=== PATIENT | female | born 1940 | race Caucasian/White ===

== ENCOUNTER 2021-04-17 21:16 | Inpatient (IN) | payer MEDICARE, OTHER ==
[~2021-04-17] VITALS: Ht 157.5 cm; Wt 68.3 kg
[2021-04-17] MEDS ORDERED: polyethylene glycoL POWDER 17 GM (MIRALAX) PACK PO PRN (21:30)
[2021-04-17] MEDS ORDERED: ANTACID SUSP 30 ML UDC (MYLANTA) PO PRN (21:30)
[2021-04-17] MEDS ORDERED: ONDANSETRON 4 MG/2 ML (SDV) Z0FRAN IV PRN (21:30)
[2021-04-17] MEDS ORDERED: MELATONIN 3 MG TABLET PO PRN (21:30)
--- OUTSIDE RECORDS SUMMARY | 2021-04-17 23:45 | XMS REPORT | Clinical Summary ---
Author Author [facility] Organization [facility] Address Unknown Phone Unavailable Care Team Providers Care Feed Research Aide Name Role Phone Edvin May DO PCP Allergies Comments Active Allergy Reactions Severity Noted Date Diphenhydramine Hcl Hives High 02/26/2011 Naproxen Hives High 02/26/2011 Reflux Risedronate Other (See 02/26/2011 Comments) Tetracyclines 09/27/2020 Medications End Date Status Medication Sig Dispensed Refills Start Date Active omega 3 fish oil (SEA Take 1 0 OMEGA) DHA 200 mg-EPA 300 capsule by mg (1,000 mg) capsule mouth daily. Active therapeutic multivitamin Take 1 tablet 0 (THERAGRAN) tablet by mouth daily. Active cholecalciferol, vitamin Take 1,000 0 D3, 1,000 units(25 mcg) Units by tablet mouth daily. Active vitamin E 100 UNIT Take 100 0 capsule Units by mouth daily. Active cetirizine HCl (ZYRTEC Take 1 tablet 0 ORAL) by mouth daily as needed. Active acetaminophen (TYLENOL) Take 650 mg 0 650 MG CR tablet by mouth nightly as needed. Active ipratropium-albuteroL Inhale 3 mL 0 (DUO-NEB) 0.5-3 mg/3 mL every 6 (six) nebulizer hours as needed. Active apixaban (ELIQUIS) 5 mg Take 1 tablet 60 tablet 1 tablet (5 mg total) 1 by mouth 2 (two) times a day. Active empagliflozin (JARDIANCE) Take 1 tablet 30 tablet 1 10 mg tablet (10 mg total) 1 by mouth daily. Hawkins check only Active aspirin 81 MG EC tablet Take 1 tablet 30 tablet 0 (81 mg total) 1 by mouth daily. Active fluticasone propionate Use 1 spray 1 Bottle 0 (FLONASE) 50 in each 1 mcg/actuation nasal spray nostril daily. Active varenicline (CHANTIX) 0.5 Take 1 tablet 30 tablet 0 MG tablet (0.5 mg 1 total) by mouth daily. Active aliskiren (TEKTURNA) 150 Take 1 tablet 30 tablet 0 MG tablet (150 mg 1 total) by mouth daily. Active citalopram (CELEXA) 20 mg Take 1 tablet 30 tablet 0 tablet (20 mg total) 1 by mouth daily. Active cloNIDine HCL (CATAPRES) Take 1 tablet 60 tablet 0 0.2 mg tablet (0.2 mg 1 total) by mouth 2 (two) times a day. Active metoprolol succinate Take 1 tablet 30 tablet 0 (TOPROL-XL) 25 MG 24 hr (25 mg total) 1 tablet by mouth nightly. Active atorvastatin (LIPITOR) 40 Take 1 tablet 90 tablet 0 MG tablet (40 mg total) 1 by mouth nightly. Active fluticasone Inhale 1 puff 60 each 0 propion-salmeteroL 2 (two) times 1 (ADVAIR) 250-50 mcg/dose a day. DISKUS Active lisinopriL Take 1 tablet 90 tablet 0 (PRINIVIL,ZESTRIL) 20 MG (20 mg total) 1 tablet by mouth daily. Active nicotine (NICODERM CQ) 7 Place 1 patch 28 patch 0 mg/24 hr on the skin 1 daily. Active varenicline (CHANTIX) 0.5 Take 1 tablet 8 tablet 0 MG tablet (0.5 mg 1 total) by mouth 2 (two) times a day. Active varenicline (CHANTIX) 1 Take 1 tablet 60 tablet 0 mg tablet (1 mg total) 1 by mouth 2 (two) times a day. Active ALPRAZolam (XANAX) 0.25 Take 1 tablet 5 tablet 0 MG tablet (0.25 mg 1 total) by mouth 3 (three) times a day as needed for anxiety. 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 Cards initially consulted and now ciera d off -Appears euvolemic. -Will hold further IV diuresis; hypoNa and hypoCl -Would eventually discharge with torsem victoriano 20 mg po daily. -If Na improves, can start aldactone at discharge. -Had episode (brief) of chest pain on w aking AM 10/03, EKG/CXR/Troponin were all stable/unremarkable, sx's resolved. Will continue to monitor, if recurs will re-consult cardiology. Pt suspects it was due to heartburn as "that's what it normally feels like." Was relieved by NTG, but given brevity and lack of inciting factor, re flux is a viable explanation Sialadenitis 09/29/2020 Last Assessment & Plan: Formatting of this note might be differ ent from the original. CT scan showing diffuse subcutaneous ed brock CT neck showing sialoadenitis without definite sialolith. Concern fo r cellulitis in the submandibular region ENT was consulted and recommended treat ment with antibiotics, currently on Augmentin P.o. hydration, warm compress, plan abhishek lang, sialagogues Hyponatremia 09/28/2020 Last Assessment & Plan: Formatting of this note might be differ ent from the original. 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 Home requirement 2-3L Titrate as able Hyperlipemia Last Assessment & Plan: Formatting of this note might be differ ent from the original. ACID PUMPER statin, now changed to high intensi ty statin with lipitor 40mg PVD (peripheral vascular disease) Last Assessment & Plan: Formatting of this note might be differ ent from the original. Significant vascular disease, complicat es care COPD (chronic obstructive pulmonary dis ease) Last Assessment & Plan: Formatting of this note might be differ ent from the original. PFTs not on file Significant smoking history On O2 at home Possibly started breo about a week ago and then ran out; restarted Pulm consulted - PO prednisone 40mg x5d - CTX x 3 days, now on augmentin for he r possible oral infection - Hank IZAGUIRRED - aerobika Tobacco abuse Last Assessment & Plan: Formatting of this note might be differ ent from the original. Significant smoking history Patient counseled on cessation, willing to try Chantix, but wants to initiate in hospital Rx for Chantix ordered 10/02, pt v/u the potential SE's including vivid dreams, mood changes, nausea, SHAY, etc Hypertension Last Assessment & Plan: Formatting of this note might be differ ent from the original. Hypertensive pressures ACID PUMPER tekturna, clonidine, diltiazem, Lis inopril/HCTZ, metoprolol Diltiazem was d/c due to NICM, HCTZ dc due hypoNa Consider dose increase on lisinopril, b ut BP stable currently Paroxysmal atrial fibrillation Last Assessment & Plan: Formatting of this note might be differ ent from the original. Patient reports history of at least par oxysmal afib Rates in RVR territory overnight and gi jason 5mg IV metoprolol On ACID PUMPER diltiazem and metoprolol at home ; dc cardizem due to NICM Now in sinus rhythm Started on eliquis Resolved Problems Problem Noted Date Resolved Date Severe sepsis 09/28/2020 10/04/2020 Leukocytosis 09/28/2020 10/04/2020 Last Assessment & Plan: Formatting of this note might be differ ent from the original. Likely from steroids, completed 3 days of CTX, cont Augmentin CT showed consolidation of LLL, multifa ctorial, recommend f/u CT in 3 months Continue to monitor Chest pain 09/28/2020 09/30/2020 Last Assessment & Plan: Formatting of this note might be differ ent from the original. Repeat EKG non-ischemic/unchanged Troponin initially 0.04-->0.03 Recent stress test non-ischemic Did resolve initially with a GI cocktai l, now recurrent with repeat troponin normal Respiratory failure with hypoxia 09/27/202010/01 Last Assessment & Plan: Formatting of this note might be differ ent from the original. Likely multifactorial from COPD and chadwick b with RVR, heart failure - see problems above Social History Date Tobacco Use Types Packs/Day Years Used Current Every Day Smoker Cigarettes 2 Smokeless Tobacco: Never Used Sex Assigned at Date Recorded Not on file Last Filed Vital Signs Reading Time Taken Comments Vital Sign 132/47 10/04/2020 3:11 PM CDT Blood Pressure 77 10/04/2020 3:11 PM CDT Pulse 36.6 C (97.9 F) 10/04/2020 3:11 PM CDT Temperature 18 10/04/2020 3:11 PM CDT Respiratory Rate 93% 10/04/2020 3:11 PM CDT Oxygen Saturation - - Inhaled Oxygen Concentration 66 kg (145 lb 9.6 oz) 10/04/2020 3:17 AM CDT Weight 157.5 cm (5' 2") 09/27/2020 3:00 AM CDT Height 26.63 09/27/2020 3:00 AM CDT Body Mass Index Plan of Treatment Health Maintenance Due Date Last Done Comments Medicare Annual Wellness 1941 Spirometry # 1940 Td/Tdap# 1941 Tobacco Cessation 1941 Counseling # Zoster Vaccine# (1 of 2) 09/18/1991 Advance Directive 2006 Conversation Depression Screening 2006 PHQ-9 # Osteoporosis Screening 2006 Influenza Vaccine (#1) 2021 08/27/2019, 07/05/2012 Fall Risk Assessment # 10/04/2021 10/04/2020 Pneumococcal Vaccine: 65+ Completed 08/27/2019, Years 05/29/2018 COVID-19 Vaccine Completed 09/20/2020 Advance Directive has Completed 10/07/2020, been filed 10/07/2020, 10/07/2020 Patient Needs Advance Completed Directive Results Not on filefrom Last 3 Months Insurance Type Payer Benefit Subscriber ID Effective Phone Address Plan / Dates Group MEDICARE REPLACEMENT PLAN [facility] [id number] 2020-P [phone] [address] [place] [address] [place] [address] Advance Directives For more information, please contact: [phone] 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
--- NOTE | 2021-04-18 00:02 | Tele-ICU Consult ---
History of Present Illness History of Present Illness Date Seen by Provider: Apr 17, 2021 Time Seen by Provider: 23:57 Date of Admission 80 y old lady with hx of COPD (on home o2 2l), CHF (LVEF 30%) presented with sob as of today; no fever chills; cough not changed. Denies CP; vaccine COVID +. Allergies and Home Medications Allergies Coded Allergies: No Allergy Information Available (Unverified , 04/17/21) Past Medical/Social/Family Hx Patient Social History Tobacco Use?: Yes Review of Systems Constitutional: see HPI Sepsis Event Evaluation Height, Weight, BMI Height: '" Weight: lbs. oz. kg; BMI Method: Exam Exam Patient acknowledged, consented, and participated in this virtual visit which was conducted using real time audio/video Height & Weight Height: '" Weight: lbs. oz. kg; BMI Method: General Appearance: No Apparent Distress, Chronically ill Assessment/Plan Assessment/Plan Acute on chronic hypoxemic resp failure copd/ chf exacerbation -cxray/ abg -steroids/ duo nebs -may need nocturnal bipap dvt prophylaxis ro PR HTN add hydralazine JANAK HINES MD Apr 18, 2021 00:02
[2021-04-18] MEDS ORDERED: hydrALAZINE (APESOLINE) 20 MG/ML VIAL IV ONE (00:15)
[2021-04-18] MEDS ORDERED: ENOXAPARIN 40 MG/0.4 ML (LOVENOX) SYR SC SCH ×2 (00:15→09:00)
[2021-04-18] MEDS: methylPREDNISolone 125 MG (Solu-MEDROL) VIAL IV SCH ×3 (00:30→13:11)
[2021-04-18] MEDS: NS IV 1000 ML 1,000 ML IV SCH ×2 (00:30→15:11)
[2021-04-18] MEDS: RT-ALBUTEROL/IPRATROPIUM 3 ML (DUONEB) VIAL IH SCH ×7 (00:38→22:21)
[2021-04-18 00:58] LABS: ABG BASE EXCESS 0.7 MMOL/L (-2.5-2.5); ABG OXYGEN SATURATION 97 % (94-100); ABG PCO2 35 MMHG (35-45); ABG PH 7.45 (7.37-7.43); ABG PO2 78 MMHG (79-93); ABG TCO2 25.5 MMOL/L (21.0-31.0); INSPIRED O2 6L; PATIENT TEMP 36; VENTILATOR NO
[2021-04-18] MEDS ORDERED: ALPRAZolam 1 MG (XANAX) TAB PO ONE (01:15)
[2021-04-18] MEDS: ALPRAZolam 0.5 MG (XANAX) TAB PO PRN ×2 (01:25→16:09)
[2021-04-18] MEDS: ACETAMINOPHEN 325 MG TABLET PO PRN ×3 (01:26→20:39)
[2021-04-18] MEDS: NICOTINE 7 MG (NICODERM) PATCH TD SCH ×2 (01:37→08:05)
[2021-04-18] MEDS ORDERED: RT-ALBUTEROL/IPRATROPIUM 3 ML (DUONEB) VIAL INH SCH (02:00)
[2021-04-18 02:12] LABS: AMPHETAMINE SCREEN, URINE NEGATIVE (NEGATIVE); BARBITURATE SCREEN URINE NEGATIVE (NEGATIVE); BENZODIAZEPINES SCREEN URINE POSITIVE (NEGATIVE); CANNABINOID SCREEN, URINE NEGATIVE (NEGATIVE); COCAINE SCREEN URINE NEGATIVE (NEGATIVE); METHADONE STAT NEGATIVE (NEGATIVE); METHAMPHETAMINE SCREEN URINE S NEGATIVE (NEGATIVE); OPIATE SCREEN URINE NEGATIVE (NEGATIVE); OXYCODONE STAT NEGATIVE (NEGATIVE); PROPOXYPHENE STAT NEGATIVE (NEGATIVE); TRICYCLIC ANTIDEPRESSANTS SCRE NEGATIVE (NEGATIVE)
[2021-04-18 06:05] LABS: HEMATOCRIT 42 % (35-52); HEMOGLOBIN 14.7 g/dL (11.5-16.0); MEAN CORPUSCULAR HEMOGLOBIN 32 pg (25-34); MEAN CORPUSCULAR HGB CONC 35 g/dL (32-36); MEAN CORPUSCULAR VOLUME 91 fL (80-99); MEAN PLATELET VOLUME 8.4 fL (9.0-12.2); PLATELET COUNT 212 10^3/uL (130-400); WHITE BLOOD COUNT 13.2 10^3/uL (4.3-11.0)
[2021-04-18 06:21] LABS: INR 1.1 (0.8-1.4); PROTHROMBIN TIME PATIENT 14.9 SEC (12.2-14.7)
[2021-04-18 06:27] LABS: POTASSIUM 4.8 MMOL/L (3.6-5.0)
[2021-04-18 06:29] LABS: CALCIUM 9.7 MG/DL (8.5-10.1)
[2021-04-18] MEDS: POTASSIUM CL 10MEQ/50ML IVPB 50 ML IV SCH (06:30)
[2021-04-18] MEDS: KCL 20 MEQ TAB (K-DUR) PO SCH (06:31)
[2021-04-18 06:33] LABS: CREATININE SERUM 0.73 MG/DL (0.60-1.30); PHOSPHORUS 2.7 MG/DL (2.3-4.7)
[2021-04-18 06:35] LABS: MAGNESIUM 1.5 MG/DL (1.6-2.4)
[2021-04-18] MEDS: inSUlin ASPART (NovoLOG) 1 UNIT/0.01 ML (CHARGE PER UNIT) SC SCH ×4 (06:48→20:40)
[2021-04-18] MEDS: MAGNESIUM 1 GM/100 ML IVPB 100 ML IV SCH ×3 (06:48→10:43)
--- NOTE | 2021-04-18 07:14 | Diagnostic Imaging Report ---
EXAMINATION: Chest 1 view HISTORY: COPD COMPARISON: None available. FINDINGS: The lungs are clear without edema or pneumonia. No pleural effusion or pneumothorax. Heart size is normal. Lucency along the aortic knob and descending aorta may represent pneumomediastinum. IMPRESSION: 1. There is a lucency along the aortic knob and descending aorta which may represent pneumomediastinum. Dictated by: Dictated on workstation # [id number]
[2021-04-18] MEDS: NICOTINE PATCH REMOVAL TP SCH (08:05)
--- NOTE | 2021-04-18 08:26 | Tele-ICU Progress Note ---
Subjective Date Seen by a Provider: Apr 18, 2021 Time Seen by a Provider: 13:26 Subjective/Events-last exam 80 yo F admitted with exerbation of CHF, COPD, on 6 lpm NC, FiO2 30%, SpO2 95%, CXR shows hyperinflation, ABG 7.45/35/78, On Medrol/albuterol Has chronically low Na 118, now 120, urine lytes and osmoles not back yet Sepsis Event Evaluation Height, Weight, BMI Height: '" Weight: lbs. oz. kg; 25.55 BMI Method: Focused Exam Lactate Level 04/18/21 00:50: Lactic Acid Level 0.85 Exam Exam Patient acknowledged, consented, and participated in this virtual visit which was conducted using real time audio/video Vital Signs Date Time Temp Pulse Resp B/P (MAP) Pulse Ox O2 Delivery O2 Flow Rate FiO2 04/18/21 07:54 36.0 04/18/21 07:28 95 Nasal Cannula 4.00 04/18/21 07:00 70 04/18/21 06:00 70 33 139/64 94 Nasal Cannula 6.00 04/18/21 05:00 73 21 124/109 94 Nasal Cannula 6.00 04/18/21 04:00 36.1 Nasal Cannula 6.00 04/18/21 04:00 69 27 112/53 92 Nasal Cannula 6.00 04/18/21 04:00 Nasal Cannula 6.00 04/18/21 03:11 91 Nasal Cannula 6.00 04/18/21 03:00 68 24 107/54 93 Nasal Cannula 6.00 04/18/21 02:00 74 31 171/78 94 Nasal Cannula 6.00 04/18/21 01:30 83 181/93 94 Nasal Cannula 6.00 04/18/21 01:19 82 04/18/21 01:15 80 190/77 95 Nasal Cannula 6.00 04/18/21 01:13 85 191/82 93 Nasal Cannula 6.00 04/18/21 00:45 76 164/73 95 Nasal Cannula 6.00 04/18/21 00:30 67 29 189/172 96 Nasal Cannula 6.00 04/18/21 00:15 64 192/94 95 Nasal Cannula 6.00 04/18/21 00:00 70 198/98 97 Nasal Cannula 6.00 04/17/21 23:55 Nasal Cannula 6.00 04/17/21 23:50 36.0 Nasal Cannula 6.00 04/17/21 23:43 74 04/17/21 23:42 76 35 128/113 97 Nasal Cannula 6.00 I & O 04/18/21 06:59 Intake Total 500 ml Output Total 650 ml Balance -150 ml Height & Weight Height: '" Weight: lbs. oz. kg; 25.55 BMI Method: General Appearance: No Apparent Distress, Chronically ill, Mild Distress (some distress when eats) Respiratory: Decreased Breath Sounds (decreased BS in both lower lobes) Cardiovascular: Regular Rate, Rhythm, Tachycardia Gastrointestinal: normal bowel sounds, non tender, soft Extremity: Non Tender, No Pedal Edema Neurologic/Psychiatric: Alert, Oriented x3 Results Lab Laboratory Tests 04/18/21 05:30 Assessment/Plan Assessment/Plan COPD, appears compensated hyponatremia, Na 118, will draw cortisol as on Medrol, await urine lytes and osmoles can go to medical-surg floor await free cortisol level Hb 14.7 to ri suggests reactive polycythemia from hypoxemia, Before discharge would do 6 min walk. Critical Care: Critically Ill Patient CHAD MCCLAIN MD Apr 18, 2021 08:26
[2021-04-18 09:08] LABS: CALCIUM 9.4 MG/DL (8.5-10.1); CREATININE SERUM 0.69 MG/DL (0.60-1.30); POTASSIUM 4.4 MMOL/L (3.6-5.0)
[2021-04-18] MEDS ORDERED: APIX5TAB PO (12:09)
[2021-04-18] MEDS ORDERED: CETI10TA17 PO (12:09)
[2021-04-18] MEDS ORDERED: [UNRECOGNIZED DRUG - CODE] PO (12:09)
[2021-04-18] MEDS ORDERED: FURO40TA4 PO (12:09)
[2021-04-18] MEDS ORDERED: CITA20TA9 PO (12:09)
[2021-04-18] MEDS ORDERED: CHOL-34 PO (12:09)
[2021-04-18] MEDS ORDERED: SPIR25TA5 PO (12:09)
[2021-04-18] MEDS ORDERED: DIGO125T3 PO (12:09)
[2021-04-18] MEDS ORDERED: LISI40TA9 PO (12:09)
[2021-04-18] MEDS ORDERED: ACET-2650 PO (12:09)
[2021-04-18] MEDS ORDERED: VITA100T8 PO (12:09)
[2021-04-18] MEDS ORDERED: METO50TA7 PO (12:09)
[2021-04-18] MEDS ORDERED: ATOR40TA70 PO (12:09)
[2021-04-18] MEDS ORDERED: FLUT1BLS3 INH (12:09)
[2021-04-18] MEDS ORDERED: ALPR0.254 PO ×2 (12:09)
[2021-04-18] MEDS ORDERED: IPRA3AMP31 IH (12:09)
[2021-04-18] MEDS ORDERED: MULT-10 PO (12:09)
[2021-04-18] MEDS ORDERED: FLUT9.9S NSEACH (12:12)
[2021-04-18 13:13] LABS: CALCIUM 9.2 MG/DL (8.5-10.1); CREATININE SERUM 0.71 MG/DL (0.60-1.30); POTASSIUM 4.4 MMOL/L (3.6-5.0)
[2021-04-18] MEDS: SODIUM CHLORIDE 3% 500 ML IV SCH (16:05)
[2021-04-18] MEDS ORDERED: ALPRAZolam 0.25 MG (XANAX) TAB PO PRN (18:15)
--- NOTE | 2021-04-18 18:20 | History & Physical-Hospitalist ---
History of Present Illness HPI/Chief Complaint Ana Johnston is a 80 year old female with PMH HTN, HLD, AFib, anxiety, COPD, who presented with shortness of breath. She has a cough which is at baseline. She is not producing any sputum but feels like she should. She denies fevers and chills. She denies chest pain. She denies abdominal pain, nausea, vomiting, diarrhea. She has no urinary symptoms. She denies headaches, confusion, vision changes, and seizures. She is a current smoker. Source: patient Exam Limitations: no limitations Date Seen 04/18/21 Time Seen by a Provider: 10:50 Attending Physician Gwen Louise MD PCP No,Local Physician Referring Physician Date of Admission Apr 17, 2021 at 23:38 Home Medications & Allergies Home Medications Reviewed patient Home Medication Reconciliation performed by pharmacy medication reconciliations nursery technician and/or nursing. Patients Allergies have been reviewed. Allergies Allergies Coded Allergies diphenhydramine (Verified Allergy, Unknown, UNKNOWN, 04/18/21) naproxen (Verified Allergy, Unknown, UNKNOWN, 04/18/21) tetracycline (Verified Allergy, Unknown, UNKNOWN, 04/18/21) Uncoded Allergies RISEDRONATE ( Allergy, Unknown, UNKNOWN, 04/18/21) Past Syqfror-Qszakh-Ccldvu Hx Patient Social History Tobacco Use?: Yes Tobacco type used: Cigarettes Smoking Status: Current Everyday Smoker Use of E-Cig and/or Vaping dev: No Substance use?: No Alcohol Use?: No Pt feels they are or have been: No Immunizations Up To Date First/Initial COVID19 Vaccinat: 2020 Current Status Advance Directives: Yes Advance Directive Location: Unable to obtain copy Communicates: Verbally Primary Language: Indonesian Preferred Spoken Language: Indonesian Sensory deficits: Vision impairment Past Medical History COPD Atrial Fibrillation, High Cholesterol, Hypertension Anxiety Family Medical History No Pertinent Family Hx Review of Systems Constitutional: no symptoms reported EENTM: no symptoms reported Respiratory: cough, short of breath Cardiovascular: no symptoms reported Gastrointestinal: no symptoms reported Genitourinary: no symptoms reported Musculoskeletal: no symptoms reported Skin: no symptoms reported Psychiatric/Neurological: No Symptoms Reported Physical Exam Physical Exam Vital Signs Vital Signs - First Documented 04/17/21 04/17/21 23:42 23:50 Temp 36.0 Pulse 76 Resp 35 B/P (MAP) 128/113 Pulse Ox 97 O2 Delivery Nasal Cannula O2 Flow Rate 6.00 Capillary Refill : Height, Weight, BMI Height: '" Weight: lbs. oz. kg; 25.55 BMI Method: General Appearance: No Apparent Distress, WD/WN HEENT: PERRL/EOMI, Pharynx Normal Neck: Normal Inspection, Supple Respiratory: Lungs Clear, No Respiratory Distress, Decreased Breath Sounds Cardiovascular: Regular Rate, Rhythm, No Edema, No Murmur Gastrointestinal: Normal Bowel Sounds, Non Tender, Soft Extremity: Normal Inspection, Non Tender, No Pedal Edema Neurologic/Psychiatric: Alert, Oriented x3, No Motor/Sensory Deficits, Normal Mood/Affect Skin: Normal Color, Warm/Dry Results Results/Procedures Labs Laboratory Tests 04/18/21 05:30 04/18/21 08:30 04/18/21 12:50 04/18/21 15:43 Patient resulted labs reviewed. Imaging: Reviewed Imaging Report Assessment/Plan Admission Diagnosis Acute on chronic respiratory failure with hypoxia Admission Status: Inpatient Order (span 2 midnights) Reason for Inpatient Admission: Respiratory failure Assessment and Plan Acute on chronic respiratory failure with hypoxia COPD with acute exacerbation Steroids Inhalers MAT protocol Supplemental oxygen as needed TeleICU consulted Acute hyponatremia Hypomagnesemia Na 118 on arrival Increased to 120 with normal saline Transition to 3% hypertonic saline Monitor and correct electrolytes as needed HTN HLD AFib Anxiety Depression Continue home meds Hold Citalopram Hold Lasix DVT prophylaxis: already receiving therapeutic anticoagulation Diagnosis/Problems Diagnosis/Problems (1) Acute on chronic respiratory failure with hypoxia Status: Acute (2) COPD with exacerbation Status: Acute (3) Acute hyponatremia Status: Acute (4) Hypomagnesemia Status: Acute (5) HTN (hypertension) Status: Chronic (6) HLD (hyperlipidemia) Status: Chronic (7) Afib Status: Chronic (8) Anxiety Status: Chronic (9) Depression Status: Chronic (10) COPD (chronic obstructive pulmonary disease) Status: Chronic (11) Tobacco abuse Status: Chronic ROSLYN CLEMENT MD Apr 18, 2021 18:20
[2021-04-18] MEDS: guaiFENesin (MUCINEX) 600 MG TAB PO SCH (20:38)
[2021-04-18] MEDS: APIXABAN 5 MG (ELIQUIS) TABLET PO SCH (20:39)
[2021-04-18] MEDS: ALPRAZolam 0.25 MG (XANAX) TAB PO SCH (20:40)
[2021-04-19] MEDS: NS IV 1000 ML 1,000 ML IV SCH ×2 (00:10→16:51)
[2021-04-19] MEDS: RT-ALBUTEROL/IPRATROPIUM 3 ML (DUONEB) VIAL IH SCH ×3 (02:52→10:30)
[2021-04-19 04:03] LABS: BASOPHILS % (AUTO) 0 % (0-10); EOSINOPHILS % (AUTO) 0 % (0-10); HEMATOCRIT 34 % (35-52); HEMOGLOBIN 12.1 g/dL (11.5-16.0); LYMPHOCYTES # (AUTO) 0.4 10^3/uL (1.0-4.0); LYMPHOCYTES % (AUTO) 2 % (12-44); MEAN CORPUSCULAR HEMOGLOBIN 33 pg (25-34); MEAN CORPUSCULAR HGB CONC 36 g/dL (32-36); MEAN CORPUSCULAR VOLUME 92 fL (80-99); MEAN PLATELET VOLUME 8.3 fL (9.0-12.2); MONOCYTES # (AUTO) 0.6 10^3/uL (0.0-1.0); MONOCYTES % (AUTO) 3 % (0-12); NEUTROPHILS # (AUTO) 17.1 10^3/uL (1.8-7.8); NEUTROPHILS % (AUTO) 94 % (42-75); PLATELET COUNT 211 10^3/uL (130-400); WHITE BLOOD COUNT 18.3 10^3/uL (4.3-11.0)
[2021-04-19 04:19] LABS: POTASSIUM 4.6 MMOL/L (3.6-5.0)
[2021-04-19 04:20] LABS: CALCIUM 8.8 MG/DL (8.5-10.1)
[2021-04-19 04:24] LABS: CREATININE SERUM 0.6 MG/DL (0.60-1.30); PHOSPHORUS 2.8 MG/DL (2.3-4.7)
[2021-04-19 04:27] LABS: MAGNESIUM 1.8 MG/DL (1.6-2.4)
[2021-04-19] MEDS: POTASSIUM CL 10MEQ/50ML IVPB 50 ML IV SCH (04:45)
[2021-04-19] MEDS: MAGNESIUM 1 GM/100 ML IVPB 100 ML IV SCH (04:45)
[2021-04-19] MEDS: KCL 20 MEQ TAB (K-DUR) PO SCH (04:45)
[2021-04-19 04:51] LABS: LYMPHOCYTES % (MANUAL) 1 %; MONOCYTES % (MANUAL) 1 %; NEUTROPHILS % (MANUAL) 98 %; TOXIC GRANULATION/VACUOLAZATIO 1+
[2021-04-19] MEDS: inSUlin ASPART (NovoLOG) 1 UNIT/0.01 ML (CHARGE PER UNIT) SC SCH ×4 (06:01→20:41)
[2021-04-19] MEDS: predniSONE 20 MG TAB PO SCH (06:41)
[2021-04-19] MEDS: RT--FLUTICASONE/SALMETEROL 232-14 (AIRDUO RespiCLICK) IH SCH ×2 (07:42→20:59)
[2021-04-19] MEDS: UMECLIDINIUM BROMIDE (INCRUSE ELLIPTA) 7'S IH SCH (07:42)
[2021-04-19] MEDS: SODIUM CHLORIDE 3% 500 ML IV SCH ×2 (07:59→21:40)
[2021-04-19] MEDS: FLUTICASONE NASAL SPRAY (FLONASE) 16 GM BTL NS SCH (08:00)
[2021-04-19] MEDS: APIXABAN 5 MG (ELIQUIS) TABLET PO SCH ×2 (08:01→20:16)
[2021-04-19] MEDS: DIGOXIN 0.125 MG (LANOXIN) TAB PO SCH (08:01)
[2021-04-19] MEDS: meTOproloL SUCCINATE 50 MG (TOPROL XL) TAB PO SCH (08:01)
[2021-04-19] MEDS: guaiFENesin (MUCINEX) 600 MG TAB PO SCH ×2 (08:01→20:15)
[2021-04-19] MEDS: lisINopril 40 MG (PRINIVIL) TABLET PO SCH (08:01)
[2021-04-19] MEDS: NICOTINE PATCH REMOVAL TP SCH (08:02)
[2021-04-19] MEDS: NICOTINE 7 MG (NICODERM) PATCH TD SCH (08:02)
--- NOTE | 2021-04-19 08:43 | Tele-ICU Progress Note ---
Subjective Date Seen by a Provider: Apr 19, 2021 Time Seen by a Provider: 07:00 Subjective/Events-last exam This virtual visit was conducted using real time audio/video. Thank you for asking us to see this patient for respiratory insufficiency and distress due to AECOPD. Low Na also. HPC: Recent events: LEONCIO w exertion. PE: Resting comfortably. VSS O2 sat 95% on 3LPM. HEENT: No obvious masses, adenopathy or JVD. Chest: clear to auscultation. Diminished CV: RRR S1 S2 No murmur or added sounds. Abd: Non-tender. Bowel sounds Y. : Unremarkable. Rosa N. PUBLIC WORKS INSPECTOR/psychiatric: Alert and oriented, grossly intact. No obvious focal findings. Extremities: No edema. Capillary refill < 3 seconds. Skin: unremarkable. No SQ emph. Results: Elevated WCC 18.3. Decreased 127 improving. A/P: Respiratory insufficiency/distress: Cont duonebs,MDIs, Prednisone. CXR w no infiltrates, possible pneumed Vs. artifact Available chart/ vitals / labs / images reviewed. Video assessment done using teleICU camera, rest of exam as per RN. Monitor for increasing oxygenation needs but could transfer once Na normal.. Critical Care: critically ill patient. Cont Eliquis and 3% saline. Discussed with RN Dilcia. Asked RN to reach out to eICU if any questions or concerns later. Time spent with patient/coordination of care with other health professionals (mins): 20 Sepsis Event Evaluation Height, Weight, BMI Height: '" Weight: lbs. oz. kg; 25.55 BMI Method: Focused Exam Lactate Level 04/18/21 00:50: Lactic Acid Level 0.85 Exam Exam Patient acknowledged, consented, and participated in this virtual visit which was conducted using real time audio/video Vital Signs Date Time Temp Pulse Resp B/P (MAP) Pulse Ox O2 Delivery O2 Flow Rate FiO2 04/19/21 06:59 94 Nasal Cannula 5.00 04/19/21 06:00 87 20 135/56 97 Nasal Cannula 5.00 04/19/21 05:00 90 20 125/61 96 Nasal Cannula 5.00 04/19/21 04:00 36.1 94 Nasal Cannula 5.00 04/19/21 04:00 Nasal Cannula 5.00 04/19/21 04:00 89 21 113/50 97 Nasal Cannula 5.00 04/19/21 03:00 90 21 113/55 94 Nasal Cannula 5.00 04/19/21 02:53 93 Nasal Cannula 4.00 04/19/21 02:00 96 20 116/52 95 Nasal Cannula 5.00 04/19/21 01:03 93 04/19/21 01:00 96 18 124/60 96 Nasal Cannula 5.00 04/19/21 00:00 94 27 107/55 95 Nasal Cannula 5.00 04/18/21 23:59 Nasal Cannula 5.00 04/18/21 23:40 36.8 Nasal Cannula 5.00 04/18/21 23:00 92 23 118/58 92 Nasal Cannula 6.00 04/18/21 22:00 87 28 102/50 99 Nasal Cannula 6.00 04/18/21 21:00 93 20 133/62 96 Nasal Cannula 6.00 04/18/21 20:00 101 20 139/68 95 Nasal Cannula 6.00 04/18/21 20:00 Nasal Cannula 5.00 04/18/21 20:00 36.7 04/18/21 19:51 94 Nasal Cannula 4.00 04/18/21 19:02 98 04/18/21 19:00 98 20 141/62 94 Nasal Cannula 6.00 04/18/21 18:00 90 19 147/74 94 Nasal Cannula 6.00 04/18/21 17:00 95 20 130/62 92 Nasal Cannula 6.00 04/18/21 16:00 36.5 04/18/21 16:00 Nasal Cannula 6.00 04/18/21 16:00 93 23 158/71 93 Nasal Cannula 6.00 04/18/21 15:34 93 Nasal Cannula 4.00 04/18/21 15:00 92 22 159/82 93 Nasal Cannula 6.00 04/18/21 14:00 98 22 153/68 94 Nasal Cannula 6.00 04/18/21 13:00 87 20 155/97 93 Nasal Cannula 6.00 04/18/21 13:00 93 04/18/21 12:00 92 37 161/73 94 Nasal Cannula 6.00 04/18/21 12:00 Nasal Cannula 6.00 04/18/21 11:30 37.0 04/18/21 11:27 93 Nasal Cannula 5.00 04/18/21 11:00 87 11 94 Nasal Cannula 6.00 04/18/21 10:00 85 27 141/71 91 Nasal Cannula 6.00 04/18/21 09:00 86 24 140/78 93 Nasal Cannula 6.00 I & O 04/19/21 07:00 Intake Total 2030 ml Output Total 1520 ml Balance 510 ml Height & Weight Height: '" Weight: lbs. oz. kg; 25.55 BMI Method: General Appearance: No Apparent Distress, WD/WN HEENT: PERRL/EOMI, Pharynx Normal Neck: Normal Inspection, Supple Respiratory: Lungs Clear, No Respiratory Distress, Decreased Breath Sounds Cardiovascular: Regular Rate, Rhythm, No Edema, No Murmur Peripheral Pulses: 1+ Dorsalis Pedis (R), 1+ Left Dors-Pedis (L) (see free carito t) Gastrointestinal: normal bowel sounds, non tender, soft Extremity: Normal Inspection, Non Tender, No Pedal Edema Neurologic/Psychiatric: Alert, Oriented x3, No Motor/Sensory Deficits, Normal Mood/Affect Skin: Normal Color, Warm/Dry Results Lab Laboratory Tests 04/18/21 05:30 04/18/21 08:30 04/18/21 12:50 04/18/21 15:43 04/18/21 19:38 04/18/21 23:03 04/19/21 03:18 04/19/21 07:19 Assessment/Plan Assessment/Plan See free text Critical Care: Critically Ill Patient JUANIS THIBODEAUX MD Apr 19, 2021 08:43
[2021-04-19] MEDS ORDERED: NON-FORMULARY MEDICATION 1 EA EA (Fluticasone/Umeclidin/Vilanter (Trelegy Ellipta 100-62.5 INH SCH (09:00)
[2021-04-19] MEDS ORDERED: NON-FORMULARY MEDICATION 1 EA EA (Fluticasone Propionate (Flonase Allergy Relief) 1 SPRAY) NSEACH SCH (09:00)
[2021-04-19] MEDS: ALPRAZolam 0.5 MG (XANAX) TAB PO PRN (11:06)
--- NOTE | 2021-04-19 13:14 | Occupational Therapy Eval ---
OT Evaluation-General/PLF Medical Diagnosis Admission Date Apr 17, 2021 at 23:38 Medical Diagnosis: COPD exacerbation, low sodium Onset Date: Apr 17, 2021 Therapy Diagnosis Therapy Diagnosis: decreased ADL status, weakness Precautions Precautions/Isolations: Fall Prevention, Standard Precautions Referral Physician: Layla Referral Reason: Evaluation/Treatment Medical History Pertinent Medical History: Atrial Fib, COPD, HTN Additional Medical History HLD, anxiety Current History ED due to SOB Social History Current Living Status: Alone ADL-Prior Level of Function SCALE: Activities may be completed with or without assistive devices. 9-Awkmqnolcf-svezryx completes the activity by him/herself with no assistance from a helper. 5-Set-up or Clean-up Assistance-helper sets up or cleans up; patient completes activity. [place] assists only prior to or following the activity. 4-Supervision or Touching Assistance-helper provides verbal cues and/or touching/steadying and/or contact guard assistance as patient completes activity. Assistance may be provided throughout the activity or intermittently. 3-Partial/Moderate Assistance-helper does LESS THAN HALF the effort. [place] lifts, holds or supports trunk or limbs, but provides less than half the effort. 2-Substantial/Maximal Assistance-helper does MORE THAN HALF the effort. [place] lifts or holds trunk or limbs and provides more than half the effort. 7-Niikbuhrm-risnsa does ALL the effort. Patient does none of the effort to complete the activity. Or, the assistance of 2 or more helpers is required for the patient to complete the activity. If activity was not attempted, code reason: 7-Patient Refused. 9-Not Applicable-not attempted and the patient did not perform the activity before the current illness, exacerbation or injury. 10-Not Attempted due to Environmental Limitations-(lack of equipment, weather restraints, etc.). 88-Not Attempted due to Medical Conditions or Safety Concerns. ADL PLOF Comments Pt reports IND with ADLs and functional mobility at [facility], she lives alone but has a family member that lives close by. She has assistance with grocery shopping. Self Care: Independent Functional Cognition: Independent DME/Equipment: Bath Chair, Grab Bars, Shower Hose Pressure Vessel Inspector, Tub/Shower OT Current Status Subjective Pt laying in bed, agreeable to OT Tx. Mental Status/Objective Patient Orientation: Person, Place, Situation Attachments: Oxygen (3L) Current Upper Extremity ROM WFL Upper Extremity Coordination WFL Upper Extremity Sensation grossly 4/5 ADL-Treatment Eating (QC): 6 (IND with coffee) Toileting Hygiene (QC): 4 (CGA) Other Treatments Pt laying in bed, transferred supine to sit EOB, SBA. Pt transferred from EOB to BSC, hand held assistance for SPT. Pt completed toileting, CGA, then transferred to recliner. Pt's O2 saturation dropped to 85%, cues provided for pursed lip breathing, O2 increased from 3L-4L, O2 saturation returned to 90%'s within 30 seconds. O2 decreased to 3L and pt remained in 90%s. OT positioned recliner to comfort. Post tx, pt up in recliner, call light in reach and all needs met. Education OT Patient Education: Correct positioning, Modified ADL techniques, Progress toward Goal/Update tx plan, Purpose of tx/functional activities, Rehab process Teaching Recipient: Patient Teaching Methods: Discussion Response to Teaching: Verbalize Understanding OT Intermediate Goals Health Safety Coordinator Goals Time Frame: Apr 29, 2021 Eating (QC): 6 Oral Hygiene (QC): 6 Toileting Hygiene (QC): 6 Shower/Bathe Self (QC): 6 Upper Body Dressing (QC): 6 Lower Body Dressing (QC): 6 On/Off Footwear (QC): 6 Additional Goals: 1-Demonstrate ADL Tasks, 2-Verbalize Understanding, 3- ImproveStrength/Ivan 1=Demonstrate adherence to instructed precautions during ADL tasks. 2=Patient will verbalize/demonstrate understanding of assistive devices/modifications for ADL. 3=Patient will improve strength/tolerance for activity to enable patient to perform ADL's. OT Education/Plan Problem List/Assessment Assessment: Decreased Activ Tolerance, Decreased UE Strength, Impaired Funct Balance, Impaired I ADL's, Impaired Self-Care Skills Discharge Recommendations Plan/Recommendations: Continue POC Treatment Plan/Plan of Care Patient would benefit from OT for education, treatment and training to promote independence in ADL's, mobility, safety and/or upper extremity function for ADL's. Plan of Care: ADL Retraining, Functional Mobility, UE Funct Exercise/Act Treatment Duration: Apr 29, 2021 Frequency: 5 times per week Estimated Hrs Per Day: .25 hour per day Time/GCodes Start Time: 11:44 Stop Time: 12:07 Total Time Billed (hr/min): 23 Billed Treatment Time 1, EVM (10'), ADL (13') RADHA FLETCHER OT Apr 19, 2021 13:14
[2021-04-19] MEDS: RT-LEVALBUTEROL (XOPENEX) 1.25 MG/3 ML NEB NON-FORMULARY INH SCH ×2 (14:21→20:53)
--- NOTE | 2021-04-19 14:30 | Physical Therapy Evaluation ---
PT Evaluation-General Medical Diagnosis Admission Date Apr 17, 2021 at 23:38 Medical Diagnosis: COPD exacerbation, low sodium Onset Date: Apr 17, 2021 Therapy Diagnosis Therapy Diagnosis: debility/weakness Precautions Precautions/Isolations: Fall Prevention, Standard Precautions Referral Physician: Layla Reason for Referral: Evaluation/Treatment Medical History Pertinent Medical History: Atrial Fib, COPD, HTN Reviewed History: Yes Social History Home: Single Level Current Living Status: Alone Entry Into Home: Stairs With Railing PT Steps Into Home: 2 Prior Prior Level of Function SCALE: Activities may be completed with or without assistive devices. 7-Esqniqaupx-jwvvhdu completes the activity by him/herself with no assistance fr om a helper. 5-Set-up or Clean-up Assistance-helper sets up or cleans up; patient completes activity. [place] assists only prior to or following the activity. 4-Supervision or Touching Assistance-helper provides verbal cues and/or touching/steadying and/or contact guard assistance as patient completes activity. Assistance may be provided throughout the activity or intermittently. 3-Partial/Moderate Assistance-helper does LESS THAN HALF the effort. [place] lifts, holds or supports trunk or limbs, but provides less than half the effort. 2-Substantial/Maximal Assistance-helper does MORE THAN HALF the effort. [place] lifts or holds trunk or limbs and provides more than half the effort. 6-Qphltitdu-unlpkd does ALL the effort. Patient does none of the effort to complete the activity. Or, the assistance of 2 or more helpers is required for the patient to complete the activity. If activity was not attempted, code reason: 7-Patient Refused. 9-Not Applicable-not attempted and the patient did not perform the activity before the current illness, exacerbation or injury. 10-Not Attempted due to Environmental Limitations-(lack of equipment, weather restraints, etc.). 88-Not Attempted due to Medical Conditions or Safety Concerns. Bed Mobility: 6 Transfers (B,C,W/C): 6 Gait: 6 Stairs: 6 Indoor Mobility (Ambulation): Independent Stairs: Independent Prior Device Use: cane PT Evaluation-Current Subjective Patient agrees to PT. Objective Patient Orientation: Normal For Age Attachments: Oxygen (3L), IV ROM/Strength ROM Lower Extremities bilateral LE WFL Strength Lower Extremities 4-/5 grossly bilateral LE Integumentary/Posture Bowel Incontinence: No Bladder Incontinence: No Posture WFL Neuromuscular (Tone, Coordination, Reflexes) grossly intact Sensory Vision: Functional Hearing: Functional Transfers Roll Left to Right (QC): 6 Sit to Lying (QC): 6 Lying to Sitting/Side of Bed(Q: 6 Sit to Stand (QC): 4 (SBA) Chair/Qvq-fa-Nshzs Xfer(QC): 4 (SBA) Gait Does the Patient Walk?: Yes Mode of Locomotion: Walk Anticipated Mode of Locomotion: Walk Walk 10 feet (QC): 4 (SBA) Walk 50 ft with 2 Turns(QC): 4 (SBA) Walk 150 ft (QC): 4 (SBA) Distance: 500' Gait Assistive Device: FWW Comments/Gait Description steady, functional gait sequence with 3 standing recovery periods due to mild SOA Balance Sitting Static: Normal Sitting Dynamic: Normal Standing Static: Normal Standing Dynamic: Normal Assessment/Needs 80 y.o. female, will be seen short term by skilled PT to address functional mobility and pulmonary function to ensure safe return to home at maximum LOF. Rehab Potential: Fair PT Weed Thinner Goals Senior Living Goals PT Senior Living Goals Time Frame: Apr 30, 2021 Roll Left & Right (QC): 6 Sit to Lying (QC): 6 Lying-Sitting on Side/Bed(QC): 6 Sit to Stand (QC): 6 Chair/Sug-nl-Drflz Xfer(QC): 6 Toilet Transfer (QC): 6 Walk 10 feet (QC): 6 Walk 50ft with 2 Turns (QC): 6 Walk 150 ft (QC): 6 PT Plan Problem List Problem List: Activity Tolerance Treatment/Plan Treatment Plan: Continue Plan of Care Treatment Plan: Education, Functional Activity Ivan, Functional Strength, Gait, Safety, Transfers Treatment Duration: Apr 30, 2021 Frequency: 6 times per week Estimated Hrs Per Day: .25 hour per day Patient and/or Family Agrees t: Yes Time/GCodes Time In: 1340 Time Out: 1357 Total Billed Treatment Time: 17 Total Billed Treatment 1 visit EVModC 17 min CHRIS ASENCIO PT Apr 19, 2021 14:30
[2021-04-19] MEDS: hydrALAZINE (APESOLINE) 20 MG/ML VIAL IV PRN ×2 (16:24→20:15)
--- NOTE | 2021-04-19 16:31 | Progress Note - Hospitalist ---
Subjective HPI/CC On Admission Date Seen by Provider: Apr 19, 2021 Time Seen by Provider: 09:10 Ana Johnston is a 80 year old female with PMH HTN, HLD, AFib, anxiety, COPD, who presented with shortness of breath. She has a cough which is at baseline. She is not producing any sputum but feels like she should. She denies fevers and chills. She denies chest pain. She denies abdominal pain, nausea, vomiting, diarrhea. She has no urinary symptoms. She denies headaches, confusion, vision changes, and seizures. She is a current smoker. Subjective/Events-last exam She is feeling a little better. She is eating breakfast. She is not short of breath. She is still having cough and phlegm production. She is using her incentive spirometer but is having trouble with her Acapella. Focused Exam Lactate Level 04/18/21 00:50: Lactic Acid Level 0.85 Objective Exam Vital Signs Vital Signs Date Time Temp Pulse Resp B/P (MAP) Pulse Ox O2 Delivery O2 Flow Rate FiO2 04/19/21 14:23 94 Nasal Cannula 3.00 04/19/21 13:00 90 04/19/21 11:26 37.3 04/19/21 11:00 162/67 04/19/21 10:00 26 Capillary Refill : General Appearance: No Apparent Distress, Chronically ill Respiratory: No Respiratory Distress, Decreased Breath Sounds, Wheezing Cardiovascular: Regular Rate, Rhythm, No Edema, No Murmur Gastrointestinal: Normal Bowel Sounds, Non Tender, Soft Extremity: Normal Inspection, Non Tender, No Pedal Edema Neurologic/Psychiatric: Alert, Oriented x3, No Motor/Sensory Deficits, Normal Mood/Affect Skin: Normal Color, Warm/Dry Results/Procedures Lab Laboratory Tests 04/18/21 19:38 04/18/21 23:03 04/19/21 03:18 04/19/21 07:19 04/19/21 12:40 04/19/21 15:45 Patient resulted labs reviewed. Imaging: Reviewed Imaging Report Assessment/Plan Assessment and Plan Assess & Plan/Chief Complaint Acute on chronic respiratory failure with hypoxia COPD with acute exacerbation Steroids Inhalers MAT protocol Supplemental oxygen as needed TeleICU consulted Acute hyponatremia Hypomagnesemia Na 118 on arrival, now up to 127 Continue 3% hypertonic saline Monitor and correct electrolytes as needed HTN HLD AFib Anxiety Depression Continue home meds Hold Citalopram Hold Lasix DVT prophylaxis: already receiving therapeutic anticoagulation Diagnosis/Problems Diagnosis/Problems (1) Acute on chronic respiratory failure with hypoxia Status: Acute (2) COPD with exacerbation Status: Acute (3) Acute hyponatremia Status: Acute (4) Hypomagnesemia Status: Acute (5) HTN (hypertension) Status: Chronic (6) HLD (hyperlipidemia) Status: Chronic (7) Afib Status: Chronic (8) Anxiety Status: Chronic (9) Depression Status: Chronic (10) COPD (chronic obstructive pulmonary disease) Status: Chronic (11) Tobacco abuse Status: Chronic ROSLYN CLEMENT MD Apr 19, 2021 16:31
[2021-04-19] MEDS: ACETAMINOPHEN 325 MG TABLET PO PRN (20:15)
[2021-04-19] MEDS: ALPRAZolam 0.25 MG (XANAX) TAB PO SCH (20:16)
[2021-04-20] MEDS: RT-LEVALBUTEROL (XOPENEX) 1.25 MG/3 ML NEB NON-FORMULARY INH SCH ×3 (02:44→15:29)
[2021-04-20 04:11] LABS: BASOPHILS % (AUTO) 0 % (0-10); EOSINOPHILS % (AUTO) 0 % (0-10); HEMATOCRIT 37 % (35-52); HEMOGLOBIN 12.7 g/dL (11.5-16.0); LYMPHOCYTES # (AUTO) 0.7 10^3/uL (1.0-4.0); LYMPHOCYTES % (AUTO) 4 % (12-44); MEAN CORPUSCULAR HEMOGLOBIN 33 pg (25-34); MEAN CORPUSCULAR HGB CONC 34 g/dL (32-36); MEAN CORPUSCULAR VOLUME 96 fL (80-99); MEAN PLATELET VOLUME 8.1 fL (9.0-12.2); MONOCYTES # (AUTO) 1.1 10^3/uL (0.0-1.0); MONOCYTES % (AUTO) 6 % (0-12); NEUTROPHILS # (AUTO) 17.1 10^3/uL (1.8-7.8); NEUTROPHILS % (AUTO) 90 % (42-75); PLATELET COUNT 251 10^3/uL (130-400)
[2021-04-20 04:25] LABS: POTASSIUM 4.3 MMOL/L (3.6-5.0)
[2021-04-20 04:26] LABS: CALCIUM 8.8 MG/DL (8.5-10.1)
[2021-04-20 04:31] LABS: CREATININE SERUM 0.56 MG/DL (0.60-1.30)
[2021-04-20 04:33] LABS: MAGNESIUM 1.9 MG/DL (1.6-2.4)
[2021-04-20] MEDS: NS IV 1000 ML 1,000 ML IV SCH (04:38)
[2021-04-20] MEDS ORDERED: RT-HYPERTONIC SALINE 3% 4 ML NEB INH PRN (04:45)
[2021-04-20] MEDS ORDERED: NS IV 1000 ML 1,000 ML IV SCH (04:45)
[2021-04-20] MEDS: MAGNESIUM 1 GM/100 ML IVPB 100 ML IV SCH (05:05)
[2021-04-20] MEDS: KCL 20 MEQ TAB (K-DUR) PO SCH (05:05)
[2021-04-20] MEDS: POTASSIUM CL 10MEQ/50ML IVPB 50 ML IV SCH (05:05)
[2021-04-20] MEDS: predniSONE 20 MG TAB PO SCH (05:06)
[2021-04-20] MEDS: inSUlin ASPART (NovoLOG) 1 UNIT/0.01 ML (CHARGE PER UNIT) SC SCH ×2 (05:06→12:24)
[2021-04-20 05:10] LABS: LYMPHOCYTES % (MANUAL) 2 %; MONOCYTES % (MANUAL) 6 %; NEUTROPHILS % (MANUAL) 92 %
--- NOTE | 2021-04-20 06:39 | Diagnostic Imaging Report ---
Indication: COPD Upright portable chest shows normal heart size and vascularity. The lungs are well-expanded with no mass or infiltrate seen. There is no effusion or pneumothorax. No pneumomediastinum is evident on today's examination. IMPRESSION: No acute abnormality is seen. Dictated by: Dictated on workstation # [id number]
[2021-04-20] MEDS ORDERED: SODIUM CHLORIDE 1 GM TABLET PO SCH (09:00)
[2021-04-20] MEDS: RT--FLUTICASONE/SALMETEROL 232-14 (AIRDUO RespiCLICK) IH SCH (09:00)
[2021-04-20] MEDS: UMECLIDINIUM BROMIDE (INCRUSE ELLIPTA) 7'S IH SCH (09:00)
[2021-04-20] MEDS: FLUTICASONE NASAL SPRAY (FLONASE) 16 GM BTL NS SCH (09:13)
[2021-04-20] MEDS: guaiFENesin (MUCINEX) 600 MG TAB PO SCH (09:13)
[2021-04-20] MEDS: lisINopril 40 MG (PRINIVIL) TABLET PO SCH (09:14)
[2021-04-20] MEDS: meTOproloL SUCCINATE 50 MG (TOPROL XL) TAB PO SCH (09:14)
[2021-04-20] MEDS: NICOTINE 7 MG (NICODERM) PATCH TD SCH (09:14)
[2021-04-20] MEDS: APIXABAN 5 MG (ELIQUIS) TABLET PO SCH (09:14)
[2021-04-20] MEDS: NICOTINE PATCH REMOVAL TP SCH (09:14)
[2021-04-20] MEDS: DIGOXIN 0.125 MG (LANOXIN) TAB PO SCH (09:14)
--- NOTE | 2021-04-20 10:40 | Physical Therapy Daily Note ---
PT Daily Note-Current Subjective Patient in bed pre tx, agrees to PT, has no complaints of pain. Appearance Patient on bedside commode post tx with nurse call, nurse notified. Mental Status Patient Orientation: Person, Place, Situation Attachments: Oxygen, IV Transfers SCALE: Activities may be completed with or without assistive devices. 3-Qkrxuaooij-besqrbl completes the activity by him/herself with no assistance from a helper. 5-Set-up or Clean-up Assistance-helper sets up or cleans up; patient completes activity. [place] assists only prior to or following the activity. 4-Supervision or Touching Assistance-helper provides verbal cues and/or touching/steadying and/or contact guard assistance as patient completes activity. Assistance may be provided throughout the activity or intermittently. 3-Partial/Moderate Assistance-helper does LESS THAN HALF the effort. [place] lifts, holds or supports trunk or limbs, but provides less than half the effort. 2-Substantial/Maximal Assistance-helper does MORE THAN HALF the effort. [place] lifts or holds trunk or limbs and provides more than half the effort. 4-Berstndwl-hmrcad does ALL the effort. Patient does none of the effort to complete the activity. Or, the assistance of 2 or more helpers is required for the patient to complete the activity. If activity was not attempted, code reason: 7-Patient Refused. 9-Not Applicable-not attempted and the patient did not perform the activity before the current illness, exacerbation or injury. 10-Not Attempted due to Environmental Limitations-(lack of equipment, weather restraints, etc.). 88-Not Attempted due to Medical Conditions or Safety Concerns. Roll Left & Right (QC): 6 Lying to Sitting/Side of Bed(Q: 6 Sit to Stand (QC): 4 Chair/Mwf-gy-Kmqys Xfer(QC): 4 After sitting on the side of the bed patient states she needs to use the commode, she stands and transfers to commode with CGA and a rolling walker. When done she cleans up herself, ambulates and when done with that she says she needs to have a BM, patient sits on commode again. Gait Training Distance: 200' Walk 10 feet (QC): 4 Walk 50 ft with 2 Turns(QC): 4 Walk 150 ft (QC): 4 Gait Assistive Device: FWW slow but steady ambulation Treatments bed mobility and transfers, ambulation Assessment Current Status: Fair Progress improving endurance, patient takes several standing rest breaks due to fatigue PT Group Home Goals Scale Agent Goals PT Scale Agent Goals Time Frame: Apr 30, 2021 Roll Left & Right (QC): 6 Sit to Lying (QC): 6 Lying-Sitting on Side/Bed(QC): 6 Sit to Stand (QC): 6 Chair/Tya-jb-Xqifv Xfer(QC): 6 Toilet Transfer (QC): 6 Walk 10 feet (QC): 6 Walk 50ft with 2 Turns (QC): 6 Walk 150 ft (QC): 6 PT Plan Problem List Problem List: Activity Tolerance, Functional Strength, Safety, Balance, Gait, Transfer, ROM Treatment/Plan Treatment Plan: Continue Plan of Care Treatment Plan: Education, Functional Activity Ivan, Functional Strength, Gait, Safety, Transfers Treatment Duration: Apr 30, 2021 Frequency: 6 times per week Estimated Hrs Per Day: .25 hour per day Patient and/or Family Agrees t: Yes Safety Risks/Education Patient Education: Gait Training, Transfer Techniques, Correct Positioning, Safety Issues Teaching Recipient: Patient Teaching Methods: Demonstration, Discussion Response to Teaching: Reinforcement Needed Time/GCodes Time In: 1003 Time Out: 1021 Total Billed Treatment Time: 18 Total Billed Treatment 1 visit FA ANDI VALENTIN PT Apr 20, 2021 10:39
[2021-04-20] MEDS ORDERED: PRED10TA22 PO (11:47)
[2021-04-20] MEDS ORDERED: NF-NACL1GT PO (11:48)
[2021-04-20] MEDS ORDERED: GUAI600T43 PO (11:48)
--- NOTE | 2021-04-20 11:51 | Discharge Summary ---
Discharge Summary Reconcile Patient Problems Problems Reviewed?: Yes Instructions for Patient Via [facility], Assessment/Instructions Take medications as prescribed. Follow up with PCP. Return with worsening shortness of breath, confusion, or if you feel like you are getting worse. Physician to follow Patient: Lalo Discharge Diet for Home: No Restrictions Hospital Course Date of Admission: Apr 17, 2021 at 23:38 Admission Diagnosis : Acute hyponatremia Family Physician/Provider: Elizabeth,Local Physician Date of Discharge: 04/20/21 Discharge Diagnosis: Acute hyponatremia Hospital Course: Ana Johnston is a 80 year old female with PMH COPD on home oxygen, HTN, HLD, AFib, anxiety, depression, who was admitted with hyponatremia. She was treated with hypertonic saline and her sodium levels improved. She was started on sodium tablets. Her Celexa and Spironolactone were discontinued. She should have a sodium check on Sunday. Her course was complicated by COPD exacerbation. She was treated with steroids and breathing treatments and her oxygen requirement returned to her baseline 2 L. She was given a steroid taper and Mucinex. She was set up with home health care. She should follow up with her PCP in about a week. She was discharged home in stable condition. Labs and Pending Lab Test: Laboratory Tests 04/19/21 12:40: Sodium Level 128L 04/19/21 15:32: Glucometer 184H 04/19/21 15:45: Sodium Level 129L 04/19/21 20:29: Glucometer 127H 04/19/21 21:44: Sodium Level 132L 04/20/21 03:51: Sodium Level 132L, White Blood Count 19.0H, Red Blood Count 3.87, Hemoglobin 12.7, Hematocrit 37, Mean Corpuscular Volume 96, Mean Corpuscular Hemoglobin 33, Mean Corpuscular Hemoglobin Concent 34, Red Cell Distribution Width 12.6, Plate let Count 251, Mean Platelet Volume 8.1L, Immature Granulocyte % (Auto) 1, Neutrophils (%) (Auto) 90H, Lymphocytes (%) (Auto) 4L, Monocytes (%) (Auto) 6, Eosinophils (%) (Auto) 0, Basophils (%) (Auto) 0, Neutrophils # (Auto) 17.1H, Lymphocytes # (Auto) 0.7L, Monocytes # (Auto) 1.1H, Eosinophils # (Auto) 0.0, Basophils # (Auto) 0.0, Immature Granulocyte # (Auto) 0.1, Neutrophils % (Ma nual) 92, Lymphocytes % (Manual) 2, Monocytes % (Manual) 6, Potassium Level 4.3, Chloride Level 105, Carbon Dioxide Level 19L, Anion Gap 8, Blood Urea Nitrogen 12, Creatinine 0.56L, Estimat Glomerular Filtration Rate 104, BUN/Creatinine Ratio 21, Glucose Level 101, Calcium Level 8.8, Phosphorus Level 2.0L, Magnesium Level 1.9, Procalcitonin 0.02 Microbiology 04/18/21 MRSA Screen - Final, Complete MRSA not isolated Home Meds Active Mucinex (Guaifenesin) 600 Mg Tab.er.12h 600 Mg PO BID 30 Days Sodium Chloride 1 Gm Tab 1 Gm PO BID 30 Days Prednisone 10 Mg Tab.ds.pk 10 Mg PO DAILY Take 6 tabs(60mg)daily,decrease by 1 tab(10MG)daily. Reported Flonase Allergy Relief (Fluticasone Propionate) 9.9 Ml [place].susp 1 [place] NSEACH DAILY Vitamin E (Vitamin E Mixed) 100 Unit Tablet 100 Unit PO DAILY Stress Formula (Multivits,Stress Formula) 1 Each Tablet 1 Each PO DAILY Fish Oil 1,000 mg Softgel ([place]-3/Dha/Epa/Fish Oil) 1 Each Capsule 1 Each PO DAILY Vitamin D3 (Cholecalciferol (Vitamin D3)) 25 Mcg Tablet 25 Mcg PO DAILY Cetirizine HCl 10 Mg Tablet 10 Mg PO DAILY PRN Tylenol Arthritis (Acetaminophen) 650 Mg Tablet.er 650 Mg PO HS Iprat-Albut 0.5-3(2.5) mg/3 ml (Ipratropium/Albuterol Sulfate) 3 Ml Ampul.neb 3 Ml IH Q4H PRN Spironolactone 25 Mg Tablet 25 Mg PO TUE,ELSIE,SAT Eliquis (Apixaban) 5 Mg Tablet 5 Mg PO Q12H Metoprolol Succinate 50 Mg Tab.er.24h 50 Mg PO DAILY Furosemide 40 Mg Tablet 20 Mg PO DAILY TAKES OF A 40MG TAB Lisinopril 40 Mg Tablet 40 Mg PO DAILY Atorvastatin Calcium 40 Mg Tablet 40 Mg PO HS ALPRAZolam 0.25 Mg Tablet 0.25 Mg PO DAILY PRN ALPRAZolam 0.25 Mg Tablet 0.25 Mg PO HS Trelegy Ellipta 100-62.5-25 (Fluticasone/Umeclidin/Vilanter) 1 Each Blst.w.dev 1 Puff INH DAILY Citalopram HBr (Citalopram Hydrobromide) 20 Mg Tablet 20 Mg PO DAILY Digoxin 125 Mcg Tablet 125 Mcg PO DAILY Patient Allergies: Coded Allergies: diphenhydramine (Verified Allergy, Unknown, UNKNOWN, 04/18/21) naproxen (Verified Allergy, Unknown, UNKNOWN, 04/18/21) tetracycline (Verified Allergy, Unknown, UNKNOWN, 04/18/21) Uncoded Allergies: RISEDRONATE (Allergy, Unknown, UNKNOWN, 04/18/21) Home Health Need/Face to Face Date of Face to Face: Apr 20, 2021 Clinical Findings: Generalized weakness and fatigue, Muscle weakness, Shortness of breath I have seen Pt msyg-xg-vyye: Yes Discharged To: Home Diagnosis/Conditions: COPD Chronic respiratory failure with hypoxia Hyponatremia CHF Anxiety Tobacco abuse Depression Problems/Diagnosis/Condition: (1) COPD with exacerbation (2) Acute hyponatremia (3) HTN (hypertension) (4) HLD (hyperlipidemia) (5) Afib (6) Anxiety (7) Depression (8) Tobacco abuse Patient is Homebound due to: [place] fall risk due to instabilty, Muscle weakness, Shortness of breath/distress Homebound Status Due to the above stated illness, injury or surgical procedure (medical condition or diagnosis) and associated clinical findings, the patient is homebound because of his/her inability to leave home except with aid of a supportive device and/or person AND leaving the home requires a considerable and taxing effort or is medically contraindicated. Pt req the following assistanc: Aid of another person Home Health Nursing Orders Home Health Services Order: Nursing Services, Contract Driver-Evaluate & Treat, Physical Therapy-Evaluate & Treat Home Health Lab Orders Labs (specify type/freq): 04/22, one time then per Dr. May Therapy Orders Therapy Orders: OT (must have SN or PT order), Physical Therapy Therapy Specific Orders: Eval assistive deivces, Teach enviro m odifications/safety, Gait training, Increase strength/endurance Certify Stmt I certify that this patient is under my care and that I, a nurse practitioner or a physician; a drilling assistant working with me, had a face to face encounter that - meets the physician face to face encounter requirements with this patient as dated. Discharge Physical Exam General: Alert, Cooperative, No Acute Distress, Other (chronically ill) HEENT: Atraumatic, EOMI, Mucous Memb Moist/[place] Lungs: Clear to Auscultation, Other (wheezing) Heart: Regular Rate, Normal S1, Normal S2, No Murmurs Abdomen: Normal Bowel Sounds, Soft, No Tenderness Extremities: No Edema, No Tenderness/Swelling Skin: No Rashes, No Significant Lesion Neuro: Normal Speech, Normal Tone Psych/Mental Status: Mental Status NL, Other (anxious) ROSLYN CLEMENT MD Apr 20, 2021 11:51
--- NOTE | 2021-04-20 12:50 | Occupational Ther Daily Note ---
OT Current Status-Daily Note Subjective Pt alert, sitting in recliner. Nrsg stated that pt to discharge to home today. Mental Status/Objective Patient Orientation: Person, Place, Time, Situation ADL-Treatment Therapy Code Descriptions/Definitions Functional [place] Measure: 0=Not Assessed/NA 4=Minimal Assistance 1=Total Assistance 5=Supervision or Setup 2=Maximal Assistance 6=Modified [place] 3=Moderate Assistance 7=Complete IndependenceSCALE: Activities may be completed with or without assistive devices. 1-Fzroddhgzh-thfcfkn completes the activity by him/herself with no assistance from a helper. 5-Set-up or Clean-up Assistance-helper sets up or cleans up; patient completes activity. [place] assists only prior to or following the activity. 4-Supervision or Touching Assistance-helper provides verbal cues and/or touchin g/steadying and/or contact guard assistance as patient completes activity. Assistance may be provided throughout the activity or intermittently. 3-Partial/Moderate Assistance-helper does LESS THAN HALF the effort. [place] lifts, holds or supports trunk or limbs, but provides less than half the effort. 2-Substantial/Maximal Assistance-helper does MORE THAN HALF the effort. [place] lifts or holds trunk or limbs and provides more than half the effort. 1-Txdxurqwz-pdkiun does ALL the effort. Patient does none of the effort to complete the activity. Or, the assistance of 2 or more helpers is required for the patient to complete the activity. If activity was not attempted, code reason: 7-Patient Refused. 9-Not Applicable-not attempted and the patient did not perform the activity before the current illness, exacerbation or injury. 10-Not Attempted due to Environmental Limitations-(lack of equipment, weather restraints, etc.). 88-Not Attempted due to Medical Conditions or Safety Concerns. Other Treatment Discussed with pt home environment, pt stating that she is worried about when she showers. When STOVER asks about what worries pt, pt unable to tell STOVER why she was worrying. STOVER attempted to discuss how to step safely into tub, pt cut STOVER off and said that was not it. Pt then stated the only grabbar that she has was one at the edge of her tub and that was good enough for her. Pt stated that she has a tub seat and that a tub transfer bench is to big for her bathroom. Pt went on to say she has a hand held shower and the toilet is right next to the tub so she has a close place to sit when getting out of tub. After session, pt sitting in recliner with call light/phone in reach. All needs met in room. OT Manager Administrative Goals Manager Administrative Goals Time Frame: Apr 29, 2021 Eating (QC): 6 Oral Hygiene (QC): 6 Toileting Hygiene (QC): 6 Shower/Bathe Self (QC): 6 Upper Body Dressing (QC): 6 Lower Body Dressing (QC): 6 On/Off Footwear (QC): 6 Additional Goals: 1-Demonstrate ADL Tasks, 2-Verbalize Understanding, 3- ImproveStrength/Ivan 1=Demonstrate adherence to instructed precautions during ADL tasks. 2=Patient will verbalize/demonstrate understanding of assistive devices/modifications for ADL. 3=Patient will improve strength/tolerance for activity to enable patient to perform ADL's. OT Education/Plan Problem List/Assessment Assessment: Decreased Activ Tolerance Discharge Recommendations Plan/Recommendations: Continue POC Treatment Plan/Plan of Care Patient would benefit from OT for education, treatment and training to promote independence in ADL's, mobility, safety and/or upper extremity function for ADL's. Plan of Care: ADL Retraining, Functional Mobility, UE Funct Exercise/Act Treatment Duration: Apr 29, 2021 Frequency: 5 times per week Estimated Hrs Per Day: .25 hour per day Rehab Potential: Fair Time/GCodes Start Time: 11:40 Stop Time: 11:50 Total Time Billed (hr/min): 10 Billed Treatment Time 1 visit-FA 1 (10 min) RAO MEYER Apr 20, 2021 12:50
[2021-04-20] MEDS: ALPRAZolam 0.5 MG (XANAX) TAB PO PRN (13:40)
[2021-04-20 13:58] LABS: BILIRUBIN,URINE NEGATIVE (NEGATIVE); CLARITY,URINE CLEAR; COLOR,URINE YELLOW; GLUCOSE, URINE (UA) NEGATIVE (NEGATIVE); KETONES,URINE NEGATIVE (NEGATIVE); LEUKOCYTE ESTERASE ,URINE 1+ (NEGATIVE); NITRITE,URINE NEGATIVE (NEGATIVE); PROTEIN,URINE NEGATIVE (NEGATIVE)
[2021-04-20 14:10] LABS: BACTERIA,URINE FEW /HPF; SQUAMOUS EPITHELIAL CELL,UR 0-2 /HPF
[2021-04-20 15:45] VITALS: BP 125/80
== END 2021-04-20 15:45 | disposition home health service (06) | DRG 640 ==
LOC: ICU 23:38
PROVIDERS: ADMIT Family Medicine; ATTEND Internal Medicine
DX: E87.1 Hypo-osmolality and hyponatremia (principal); J96.21 Acute and chronic respiratory failure with hypoxia; J44.1 Chronic obstructive pulmonary disease with (acute) exacerbation; I50.9 Heart failure, unspecified; Z99.81 Dependence on supplemental oxygen; I11.0 Hypertensive heart disease with heart failure; I48.91 Unspecified atrial fibrillation; F41.9 Anxiety disorder, unspecified; F17.210 Nicotine dependence, cigarettes, uncomplicated; E78.00 Pure hypercholesterolemia, unspecified; E83.42 Hypomagnesemia; F32.A Depression, unspecified
CPT/HCPCS: 36415; 36600; 71045; 80048; 80306; 81000; 82533; 82805; 82947; 83605; 83735; 83935; 84100; 84145; 84295; 84300; 84484; 85007; 85027; 85610; 87070; 87081; 87088; 87205; 94640